=== PATIENT | female | born 1965 | race Caucasian/White ===

== ENCOUNTER 2023-04-17 15:46 | Emergency (ER) | payer MEDICAID | END 2023-04-17 17:58 | disposition home or self-care (01) | LOC: ED 15:46 | DX: N23 Unspecified renal colic (principal); Z88.8 Allergy status to other drugs, medicaments and biological substances ==

== ENCOUNTER 2023-04-21 21:23 | Inpatient (IN) | payer MEDICAID ==
[~2023-04-21] VITALS: Ht 157.5 cm; Wt 78.1 kg
[~2023-04-21 21:23] MED LIST: FLOMAX0.4 MG PO; ONDANSETRON ODT8 MG PO; PERCOCET 5-3251 EACH PO
--- OUTSIDE RECORDS SUMMARY | 2023-04-21 21:24 | XMS ---
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 No recent Security Events currently on file CRITERIA MET - 6 ED Visits in 6 Months - PDMP - [facility] - 2 Visits in 30 Days - [facility] - 3 Facilities in 90 Days - [facility] - Has Care Guidelines CARE PROVIDERS YUDI LOPEZ [facility] Current PHONE: [phone] GREGORIA JOLLY [facility] Current PHONE: Unknown JEROMY BEAN [facility] Current PHONE: [phone] ITALO LOWE [facility] Current PHONE: [phone] Guidelines Source: [facility] Guidelines Date: 07/19/2022 Care Recommendation: Reason for Care Plan Recommendations: - \T\nbsp; Frequent ED visits with subjective pain complaints.\T\nbsp;\T\nbsp; -18 ED visits between [facility] and [facility] within 6 months -Concerning Board of Pharmacy\T\nbsp;\T\nbsp; Care Plan Recommendations: - Pt should not be treated with potentially addictive pain medications for subjective complaints.\T\nbsp;\T\nbsp;\T\nbsp; - No home prescriptions of narcotics for subjective pain complaints. - SW/ complete a needs assessment, provide appropriate resources/referrals, if applicable.\T\nbsp; - Educate Pt regarding appropriate use of ED.\T\nbsp;\T\nbsp; Board of Pharmacy Review (Dates Investigated: 07/17/20-07/12/22) Prescriptions: 181 Pharmacies: 100 Prescribers: 30 Guidelines created on: 07/10/2019 Revised on:Chandanap;07/19/2022 Additional care guidelines exist for the following facilities: [facility] ( 11/19/2020 ) [facility] ( 06/26/2019 ) [place] VISIT COUNT (12 MO.) 14 [facility] [place] [address] [facility] [address] [facility] 2 [facility] 2 [facility] 2 [facility]_ 2 [facility] 2 PR[facility] Re[facility] 1 [facility]. 1 [facility] [place] TOTAL 40 NOTE: Visits indicate total known visits. ED/UCC VISIT TRACKING (12 MO.) 04/21/2023 21:23 [facility] [place] TYPE: Emergency COMPLAINT: - FLANK PAIN 04/17/2023 15:46 [facility] [place] TYPE: Emergency COMPLAINT: - R FLANK PAIN, NAUSEA, BLOOD IN URINE DIAGNOSES: - Allergy status to other drugs, medicaments and biological substances - Unspecified abdominal pain - Unspecified renal colic [facility] COMPLAINT: - PT STS BROKEN TOOTH DIAGNOSES: - Fracture of tooth (traumatic), initial encounter for closed fracture 04/16/2023 10:[facility] COMPLAINT: - PT STS BROKEN TOOTH 04/15/2023 16:28 [facility] [place] TYPE: Emergency COMPLAINT: - blood in urine, fever. DIAGNOSES: - Left lower quadrant pain - Abdominal Pain - blood in urine, fever. - Hematuria 04/15/2023 09:42 [facility] [place] TYPE: Emergency 04/14/2023 11:23 [facility] [place] TYPE: Emergency COMPLAINT: - R11.10 DIAGNOSES: - Hematuria, unspecified - Unspecified abdominal pain - Vomiting, unspecified 04/13/2023 21:02 [facility] [place] TYPE: Emergency COMPLAINT: - Hernia - Abdominal Pain DIAGNOSES: - Diverticulosis of intestine, part unspecified, without perforation or abscess without bleeding - Unilateral inguinal hernia, without obstruction or gangrene, not specified as recurrent - Hernia - Hernia - Abdominal Pain 04/12/2023 11:03 [facility] TYPE: Emergency COMPLAINT: - Poss hernia vomiting fever DIAGNOSES: - Left lower quadrant pain - Left lower quadrant pain - Nausea with vomiting, unspecified - Nausea with vomiting, unspecified - Abdominal Pain - Poss hernia vomiting fever 04/10/2023 17:59 [facility] TYPE: Emergency COMPLAINT: - Abdominal Pain DIAGNOSES: - Abdominal Pain 04/09/2023 16:48 [facility] TYPE: Emergency COMPLAINT: - n/v; abdominal pain DIAGNOSES: - Other chronic pain - Other chronic pain - Unilateral inguinal hernia, without obstruction or gangrene, not specified as recurrent - Unilateral inguinal hernia, without obstruction or gangrene, not specified as recurrent - Abdominal Pain - n/v; abdominal pain 04/09/2023 14:[facility] Emergency DIAGNOSES: - Generalized abdominal pain - Abdominal Pain - Abdominal Pain; Nausea 04/08/2023 12:49 [facility] TYPE: Emergency COMPLAINT: - left side hernia pain, with N/V x 2 days DIAGNOSES: - Unspecified abdominal pain - Unspecified abdominal pain - Abdominal Pain - left side hernia pain, with N/V x 2 days 04/07/2023 18:42 [facility] [place] TYPE: Emergency DIAGNOSES: - Left upper quadrant pain - Nausea with vomiting, unspecified - Abdominal Pain 04/07/2023 13:22 [facility] [place] TYPE: Emergency COMPLAINT: - Abdominal Pain, Nausea DIAGNOSES: - Nausea with vomiting, unspecified - Nausea with vomiting, unspecified - Abdominal Pain - Abdominal Pain, Nausea 04/06/2023 13:20 [facility] [place] TYPE: Emergency COMPLAINT: - Abdomen pain seen yesterday DIAGNOSES: - Generalized abdominal pain - Generalized abdominal pain - Abdomen pain seen yesterday - Abdominal Pain 04/05/2023 18:02 [facility] [place] TYPE: Emergency COMPLAINT: - left abd pain DIAGNOSES: - Left lower quadrant pain - Left lower quadrant pain - Abdominal Pain - left abd pain 03/21/2023 12:55 [facility] DIAGNOSES: [id number]. MOUTH PAIN BROKEN TOOTH 22080. Dental caries, unspecified 25134. Fracture of tooth (traumatic), initial encounter for closed fracture 03/08/2023 20:16 [facility] [place] TYPE: Emergency COMPLAINT: - Nausea; Fever; Abdominal Pain; Bloody Stool DIAGNOSES: - Generalized abdominal pain - Generalized abdominal pain - Abdominal Pain - Diarrhea - Nausea; Fever; Abdominal Pain; Bloody Stool 02/22/2023 17:25 [facility] [place] TYPE: Emergency COMPLAINT: - bloody stool abd pain nausea DIAGNOSES: - Diarrhea, unspecified - Left lower quadrant pain - Left lower quadrant pain - Vomiting, unspecified - Vomiting, unspecified - Abdominal Pain - bloody stool abd pain nausea - Nausea - Vomiting Plus 20 More Visits INPATIENT VISIT TRACKING (12 MO.) 01/19/2023 11:00 [facility] TYPE: Surgery COMPLAINT: - Chronic abdominal pain DIAGNOSES: - Unspecified abdominal pain [email or web address]
[2023-04-21] MEDS ORDERED: OMEPRAZOLE40 MG PO (21:43)
[2023-04-21] MEDS ORDERED: BUPROPION XL300 MG PO (21:43)
[2023-04-21] MEDS ORDERED: LEVOTHYROXINE75 MCG PO (21:43)
[2023-04-21 21:53] LABS: BILIRUBIN, URINE NEGATIVE (negative); BLOOD/HGB, URINE LARGE (Negative); KETONE, URINE NEGATIVE (Negative); LEUK ESTERASE, URINE SMALL (negative); NITRITE, URINE NEGATIVE (negative); PH, URINE 6.5 (5-7)
[2023-04-21 21:58] LABS: EPITHELIAL CELLS, URINE SQUAMOUS 2+ /lpf (0-1+); RED BLOOD CELLS, URINE >50 /hpf (0-5)
[2023-04-21 21:59] LABS: BACTERIA, URINE RARE /hpf (negative); CASTS, URINE NONE SEEN \\lpf; CRYSTALS, URINE NONE SEEN (0-1+); REFLEX CULTURE, URINE No (No)
[2023-04-21 22:21] LABS: BASOPHILS 1.1 % (0-2); EOSINOPHILS 0.4 % (0-6); HEMATOCRIT 36.5 % (35.0-50.0); HEMOGLOBIN 12.3 g/dL (12.0-18.0); LYMPHOCYTES 27.8 % (24-44); MCH 28.2 (27-36); MCHC 33.6 g/dl (30-36); MCV 83.9 fl (81-99); MONOCYTES 6.5 % (0-12); NEUTROPHILS 64.2 % (39-80); PLATELET COUNT 373 K/uL (140-440); RBC 4.35 M/ul (4.3-5.7); RDW 15.2 (10.5-15.0)
[2023-04-21 22:38] LABS: ALBUMIN/GLOBULIN RATIO 1.21 (1.1-2.4); ANION GAP 13.1 (7-21); BILIRUBIN, TOTAL 0.8 ng/dL (0.2-1.0); BUN/CREATININE RATIO 8.75 (6.0-28.6); CALCIUM 9.1 mg/dL (8.5-10.1); CREATININE, SERUM 0.8 mg/dL (0.55-1.02); POTASSIUM 3.1 mmol/L (3.5-5.1); PROTEIN, TOTAL 7.3 g/dL (6.4-8.2)
[2023-04-21 22:41] LABS: LACTIC ACID, BLOOD 1.9 mmol/L (0.4-2.0)
[2023-04-22] VITALS (7 sets, daily range): BP systolic 98–124; BP diastolic 60–84
--- NOTE | 2023-04-22 01:03 | NUR ---
[facility] BROUGHT BY FILLING AND STAPLING MACHINE OPERATOR. pt ORIENTED TO FLOOR, QUESTIONS ANSWERED REGARDING POC. IV SITE WNL, IV FLUIDS INFUSING DIRECTED. VSS. PRIMARY RN LEIA REMAINS IN ROOM FOR pt CARES. CALL LIGHT IN REACH.
[2023-04-22] MEDS ORDERED: PENICILLIN V P500 MG PO (08:30)
--- NOTE | 2023-04-22 08:42 | NUR ---
Patient in bed refused am care due to pain. Nurse notified, ice pack given by this firm administrator. Pt has no other requests at this time. Call light within reach.
--- NOTE | 2023-04-22 08:48 | NUR ---
MED REC COMPLETE
--- NOTE | 2023-04-22 09:05 | NUR ---
ADMIN DILAUDID 0.5MG IV FOR REPORTS OF 8/10 ABDOMINAL PAIN.
--- NOTE | 2023-04-22 09:05 | NUR ---
ADMIN DILAUDID 0.5MG IV FOR REPORTS OF 10/10 ABDOMINAL PAIN.
--- NOTE | 2023-04-22 09:22 | NUR ---
PATIENT IN BED, WATCHING TELEVISION. VITALS COMPLETED. PT HAS NOT DRANK ANY LIQUIDS OR USED THE BATHROOM YET. PATIENT HAS NO OTHER REQUESTS AT THIS TIME, CALL LIGHT WITHIN REACH.
--- NOTE | 2023-04-22 09:55 | NUR ---
PT APPEARED TO BE IN OVERALL GOOD SPIRITS. STATED PAIN WAS SIGNIFICANT BUT WAS CONFIDENT RELEIF WAS TO COME. CONSENTED TO PRAYER. PRAYED FOR RELEIF FROM PAIN AND ONGOING HEALING.
--- NOTE | 2023-04-22 10:29 | NUR ---
INTO TO SEE PATIENT, PATIENT AWAKE WATCHING TV. PATIENT STATES SHE CURRENTLY LIVES IN [facility]. HER QUETA IS HERE FOR WORK AND SHE WAS VISITING AT THE TIME OF HER ILLNESS. PATIENT DOES NOT REQUIRE ANY DME OR EXPRESS ANY OTHER CASE MANAGEMENT NEEDS. PATIENT STATES SHE DOES NOT HAVE A PCP AT THIS TIME HERS RECENTLY RETIRED. SHE STATES SHE WILL BE ESTABLISHING CARE WITH A NEW PCP WHEN SHE RETURNS HOME. ADVISE IF PATIEN HAS ANY QUESTION OR CONCERNS TO CONTACT CASE MANAGEMENT.
[2023-04-22 11:00] LABS: BASOPHILS 1.1 % (0-2); EOSINOPHILS 1.9 % (0-6); HEMATOCRIT 33.2 % (35.0-50.0); HEMOGLOBIN 10.9 g/dL (12.0-18.0); LYMPHOCYTES 38.7 % (24-44); MCH 27.8 (27-36); MCHC 32.8 g/dl (30-36); MCV 84.6 fl (81-99); MONOCYTES 7.4 % (0-12); NEUTROPHILS 50.9 % (39-80); PLATELET COUNT 305 K/uL (140-440); RBC 3.93 M/ul (4.3-5.7)
[2023-04-22 11:13] LABS: ANION GAP 10.8 (7-21); BUN/CREATININE RATIO 5.97 (6.0-28.6); CALCIUM 8.7 mg/dL (8.5-10.1); CREATININE, SERUM 0.67 mg/dL (0.55-1.02); POTASSIUM 3.8 mmol/L (3.5-5.1)
[2023-04-22 11:14] LABS: MAGNESIUM 1.7 mg/dL (1.8-2.4); PHOSPHORUS, INORGANIC 4.6 mg/dL (2.5-4.9)
--- NOTE | 2023-04-22 12:27 | NUR ---
ADMIN DILAUDID 1MG IV FOR REPORTS OF 10/10 ABDOMINAL PAIN.
--- NOTE | 2023-04-22 15:30 | NUR ---
RECEIVED REPORT FROM CALEB SOTO. PT IS RESTING QUIETLY IN BED. NO NEEDS VOICED AT THE MOMENT. PT REPORTS PAIN IS TOLERABLE AT THE MOMENT. CALL LIGHT WITHIN REACH.
--- NOTE | 2023-04-22 18:49 | NUR ---
PATIENT CALLED WANTED AN ICE PACK. SO BROUGHT HER AN ICE PACK.
--- NOTE | 2023-04-22 19:45 | NUR ---
REPORT RECEIVED FROM DAY SHIFT NURSE. PT RESTING COMFORTABLY IN BED. BREATHING EVEN AND UNLABORED. IV INFUSING. NO NEEDS AT THIS TIME. CALL LIGHT WITH REACH.
--- NOTE | 2023-04-22 20:20 | NUR ---
in to check vs, pt states x1 void earlier, no further needs
--- NOTE | 2023-04-22 23:17 | EKG ---
[facility] [address] [place] [address] Signed Normal sinus rhythm Normal ECG No previous ECGs available Confirmed by Ashley Menon MD () on 04/22/2023 11:17:40 PM Electronically Signed By: ASHLEY MENON MD 04/22/23 2317 PATIENT NAME: FREDDY MAY Electrocardiogram DATE OF : 69 PHYSICIAN: ASHLEY MENON MD REPORT #: [id number] REPORT IS CONFIDENTIAL AND NOT TO BE RELEASED WITHOUT AUTHORIZATION
[2023-04-23] VITALS (7 sets, daily range): BP systolic 93–116; BP diastolic 47–89
--- NOTE | 2023-04-23 03:45 | NUR ---
Patient requested an ice pack and pain medication. Nothing else at this time.
[2023-04-23 05:20] LABS: EOSINOPHILS 1.4 % (0-6); HEMATOCRIT 31.8 % (35.0-50.0); HEMOGLOBIN 10.4 g/dL (12.0-18.0); LYMPHOCYTES 26.4 % (24-44); MCH 27.7 (27-36); MCHC 32.8 g/dl (30-36); MCV 84.7 fl (81-99); MONOCYTES 7.9 % (0-12); NEUTROPHILS 63.3 % (39-80); PLATELET COUNT 285 K/uL (140-440); RBC 3.76 M/ul (4.3-5.7); RDW 14.9 (10.5-15.0)
[2023-04-23 05:35] LABS: ALBUMIN 3.2 g/dL (3.4-5.0); ALBUMIN/GLOBULIN RATIO 1.07 (1.1-2.4); ANION GAP 9.8 (7-21); BILIRUBIN, TOTAL 1.5 ng/dL (0.2-1.0); BUN/CREATININE RATIO 4.16 (6.0-28.6); CALCIUM 8.4 mg/dL (8.5-10.1); CREATININE, SERUM 0.72 mg/dL (0.55-1.02); MAGNESIUM 2.1 mg/dL (1.8-2.4); POTASSIUM 3.8 mmol/L (3.5-5.1); PROTEIN, TOTAL 6.2 g/dL (6.4-8.2)
--- NOTE | 2023-04-23 06:37 | NUR ---
in room to recheck bp per request of primary rn, bp recheck-remains soft but improved. iv site also alarming, iv site patent and flushes easily with brisk blood return. iv fluids and iv abx resumed, infusing wnl. call light in reach.
--- NOTE | 2023-04-23 08:15 | NUR ---
Patient awake in bed, no acute distress. Patient reports 5/10 generalized pain. Morphine 2MG IV admin at this time. Patient declined her po medications this morning. Patient denies needs at this time. Oral care and water provided to patient.
--- NOTE | 2023-04-23 08:22 | NUR ---
ADMIN DILAUDID 1MG IV FOR REPORTS OF 10/10 ABDOMINAL PAIN. IV SITE REMAINS PATEMT, FLUIDS/ABX INFUSING PER PROVIDER ORDER. PATIENT HAS NO CURRENT NEEDS AT THIS TIME. CALL LIGHT WITHIN REACH.
--- NOTE | 2023-04-23 10:07 | NUR ---
ADMIN DILAUDID 1MG IV, TYLENOL 650MG PO AND ZOFRAN 4MG IV FOR REPORTS OF 8/10 ABDOMINAL PAIN, TEMP OF 100.1F AND NAUSEA. COOL COMPRESS PROVIDED TO PATIENT AT THIS TIME. PATIENT UP TO VOID, SHE REPORTS SMALL SOFT BROWN STOOL. NO NEEDS AT THIS TIME.
--- NOTE | 2023-04-23 11:18 | NUR ---
ADMIN MORPHINE 4MG IV FOR REPORTS OF 8/10 ABDOMINAL PAIN.
--- NOTE | 2023-04-23 11:44 | NUR ---
Patient requesting more pain medication. Patient recently had morphine 4mg IV, education provided to pt regarding medication frequency and plan of care.
--- NOTE | 2023-04-23 13:04 | NUR ---
PIECER REPORTS PT IS READY FOR SHOWER AND NEEDS IV SALINE LOCKED. IV FLUSHED AND SALINE LOCKED PER PROTOCOL. ALCOHOL CAP APPLIED. PT DENIES ADDITIONAL REQUESTS OR COMPLAINTS. CALL LIGHT WITHIN REACH. PTS PRIMARY RN UPDATED.
--- NOTE | 2023-04-23 14:12 | NUR ---
ADMIN MORPHINE 4MG IV FOR REPORTS OF 8/10 ABDOMINAL PAIN. PATIENT REPORTS IMPROVED NAUSEA. IV SITE REMAINS PATENT, FLUIDS/ABX INFUSING PER PROVIDER ORDER. NO CURRENT NEEDS.
--- NOTE | 2023-04-23 17:12 | NUR ---
ADMIN MORPHINE 4MG IV AND ZOFRAN 4MG IV FOR REPORTS OF 7/10 ABDOMINAL PAIN AND NAUSEA.
--- NOTE | 2023-04-23 19:00 | NUR ---
SHIFT REPORT RECEIVED FROM [facility] CALEB SOTO AT BEDSIDE, pt AWAKE AND RESTING QUIETLY IN BED. ON RA, RR EVEN AND UNLABORED. NO DISTRESS NOTED. IV SITE WNL, FLUIDS INFUSING DIRECTED. ROOM TEMP DECREASED PER pt REQUEST. CALL LIGHT IN REACH.
--- NOTE | 2023-04-23 20:09 | NUR ---
ASSESSMENT COMPLETE, NO SCHEDULED MEDS YET DUE. PRN MORPHINE (3MG IV) AND PRN TYLENOL GIVEN FOR REPORTED 7/10 ABD PAIN. VSS, LOW GRADE FEVER NOTED. BOWEL TONES ACTIVE, pt REPORTS EATING A JELLO RECENTLY, NO NAUSEA REPORTED W/ ASSESSMENT. IV SITE WNL, FLSUHES EASILY. IV FLUIDS CONTINUE TO INFUSE DIRECTED. pt ASLO USED PRN EYE DROPS FOR REPORTED DRY EYES. pt EDUCATED ON PAIN MEDICATION AND HOW IT EFFECTS BOWEL FUNCTION AND OTHER SIDE EFFECTS. DISCUSSED IF POSSIBLE TO TITRATE PRN MORPHINE BUT INSTRCTED pt TO CALL IF PAIN MEDICATION IS NEEDED, pt VERBALIZED UNDERSTANDING. pt ALSO INSTRUCTED TO USE CALL LIGHT FOR RESTROOM NEEDS, CALL LIGHT IN REACH. pt DECLINED PRN MELATONIN.
--- NOTE | 2023-04-23 21:10 | NUR ---
ROUNDED ON pt FOLLOWING PAIN MEDICAITON ADMINISTRATION, pt RESTING IN BED ON HER RIGHT SIDE. RR EVEN AND UNLABORED. NO DISTRESS NOTED, CALL LIGHT IN REACH. pt LEFT UNDISTURBED AND ALLOWED TO REST.
--- NOTE | 2023-04-23 22:48 | NUR ---
ANTIBIOTIC INFUSING, SITE WNL. PT WITH EYES CLOSED RESP EVEN UNLABORED
--- NOTE | 2023-04-23 23:00 | NUR ---
CALL LIGHT ANSWERED, pt REQUESTING ADDITIONAL PAIN MEDICATION. pt GIVEN 3MG IV MORPHINE WITH PREVIOUS ADMINISTRATION, BUT CALLED AT APPROX 2220 ASKING WHEN SHE COULD HAVE MORE. WITH THIS ADMINISTRATION, MAX 4MG IV MORPHINE GIVEN, WILL MONITOR RESPONSE. ICE PACK WRAPPED W/ PILLOWCASE ALSO PROVIDED PER pt REQUEST. TEMP RECHECKED, WNL. CALL LIGHT IN REACH.
--- NOTE | 2023-04-24 00:05 | NUR ---
pt resting in bed with eyes closed, on ra. rr even and unlabored, no distress noted. call light in reach. iv fluids and iv abx infusing as directed.
--- NOTE | 2023-04-24 01:50 | NUR ---
rounded on pt, pt resting in bed with eyes closed, on ra. rr even and unlabored, no distress noted. iv site assessed, site wnl. iv fluids and iv abx infusing as directed. pt appears comfortable and relaxed while resting in bed, no outward signs of pain noted, pt left undisturbed and allowed to rest. call light in reach.
--- NOTE | 2023-04-24 03:20 | NUR ---
ROUNDED ON pt, pt RESTING QUIETLY IN BED WITH EYES CLOSED. pt AWOKE BRIEFLY WHILE IN ROOM. PUMP ALARMING, ISSUE RESOLVED. IV SITE WNL, FLUIDS CONTINUE TO INFUSE DIRECTED. pt DENEIS NEEDS OR CONCERNS WHEN ASKED/OFFERED. CALL LIGHT IN REACH.
--- NOTE | 2023-04-24 04:47 | NUR ---
call light answered, prn pain and nausea meds given-sdee emar. iv site wnl, iv fluids infusing as directed. nasuea assessment complete, PT reports passing gas during the night. bowel tones active. no additional needs, call light in reach.
[2023-04-24 04:48] VITALS: BP 103/58
[2023-04-24 05:51] LABS: BASOPHILS 0.8 % (0-2); EOSINOPHILS 3.3 % (0-6); HEMATOCRIT 29.8 % (35.0-50.0); HEMOGLOBIN 9.9 g/dL (12.0-18.0); LYMPHOCYTES 26.8 % (24-44); MCH 27.9 (27-36); MCHC 33.1 g/dl (30-36); MCV 84.3 fl (81-99); MONOCYTES 7.9 % (0-12); NEUTROPHILS 61.2 % (39-80); PLATELET COUNT 120 K/uL (140-440); RBC 3.53 M/ul (4.3-5.7); RDW 14.7 (10.5-15.0)
--- NOTE | 2023-04-24 06:03 | NUR ---
SCHEDULED IV ABX INFUSING DIRECTED ALONG WITH NEW BAG IV FLUIDS, IV SITE WNL. NO ADDITIONAL NEEDS OR CONCERNS, CALL LIGHT IN REACH.
[2023-04-24 06:08] LABS: ALBUMIN 2.9 g/dL (3.4-5.0); ALBUMIN/GLOBULIN RATIO 1.04 (1.1-2.4); ANION GAP 8.8 (7-21); BILIRUBIN, TOTAL 1.1 ng/dL (0.2-1.0); BUN/CREATININE RATIO 4.61 (6.0-28.6); CALCIUM 8.4 mg/dL (8.5-10.1); CREATININE, SERUM 0.65 mg/dL (0.55-1.02); POTASSIUM 3.8 mmol/L (3.5-5.1); PROTEIN, TOTAL 5.7 g/dL (6.4-8.2)
--- NOTE | 2023-04-24 08:20 | NUR ---
ASSESSMENT COMPLETE - PT IN 04/14 PAIN AND REQUESTS PAIN MEDICATION. 2MG MORPHINE ADMINISTERED ALONG WITH TYLENOL. PT REPORTS FEELING FEVERISH, TEMP 99.6 ORAL. IV SITE PATENT. SMALL SOFT BM PRODUCED THIS AM. PT TOLERATING CLEAR LIQS WITHOUT INCREASED PAIN OR NAUSEA. PT HOWEVER STATES SHE DOESNT FEEL LIKE SHE IS IMPROVING CLINICALLY.
[2023-04-24 09:40] VITALS: BP 94/54
--- NOTE | 2023-04-24 11:03 | NUR ---
PT SET UP FOR SHOWER, INDEPENDENT IN ROOM. RATES PAIN 7/10. REQUESTS ADDITIONAL MORPHINE AFTER.
--- NOTE | 2023-04-24 12:30 | NUR ---
PT REPORTS PAIN 7/10 - PACING IN ROOM. RETURNED FROM CT, PAIN MEDICATION MANAGMENT CHANGE REQUESTED, STATES SHE FELT BETTER COVERAGE FROM DILAUDID. WILL FOLLOW UP WITH MD.
--- NOTE | 2023-04-24 13:46 | NUR ---
RN ROUNDING ON PT - NAUSEA PERSISTS AFTER TAKING SIPS OF CLEAR LIQS, ZOFRAN ADMINISTERED. MD TO DISCUSS CT RESULTS AT BEDSIDE.
[2023-04-24 13:48] VITALS: BP 97/54
--- NOTE | 2023-04-24 14:52 | NUR ---
PRN PAIN MEDICATION ADMINISTERED FOR 8/10 PAIN. PT UP TO BATHROOM BY SELF, STEADY ON FEET. UNDERSTANDS POC DISCUSSION WITH MD - ALL QUESTIONS ANSWERED.
--- NOTE | 2023-04-24 15:47 | NUR ---
PT AMBULATING IN HALLWAY
[2023-04-24 17:07] VITALS: BP 103/63
--- NOTE | 2023-04-24 17:31 | NUR ---
ROUNDING ON PT - RESTING IN BED IN PAIN, DUE FOR ADDITIONAL DOSE OF PAIN MEDS IN 1 HOUR. OINTMENT PROVIDED FOR DRY NOSE.
--- NOTE | 2023-04-24 18:06 | NUR ---
pt ambulating in hallway
--- NOTE | 2023-04-24 19:25 | NUR ---
BEDSIDE REPORT RECEIVED FROM KRANTHI ELLIS, PT AWAKE AND ALERT, DISCUSSED PLAN OF CARE WITH PT, PT DESIRES TO HAVE DILAUDID WHEN IT IS DUE FOR LOWER ABDOMINAL PAIN, ICE CHIPS GIVEN.
--- NOTE | 2023-04-24 19:38 | NUR ---
PT MEDICATED WITH ZOFRAN FOR NAUSEA PER REQUEST, NO EMESIS AT THIS TIME.PT RESTING, IV PATENT WITH LR INFUSING AT 125ML/HR.
--- NOTE | 2023-04-24 19:55 | NUR ---
PT STATES SHE DID HAVE A BM EARILIER WHICH LOOKED MUCOUSY WITH POSSIBLE BLOOD, STOOL FLUSHED PER PT, HAT PUT IN TOILET TO COLLECT STOOL, DISCUSSED WITH PT TO SAVE NEXT STOOL SO RN COULD CHECK FOR PRESENCE OF BLOOD, PT AGREES. WARM AND COLD PACK GIVEN PER REQUEST.
[2023-04-24 22:19] VITALS: BP 102/43
--- NOTE | 2023-04-24 22:34 | NUR ---
PT AWAKEN, VS AND ASSESSMENT COMPLETED, PT MEDICATED WITH DILAUDID 1.5MG IV FOR LOWER ABDOMINAL PAIN PER ORDER, PT TAKING SMALL AMOUNT OF ICE CHIPS, IV WITH SMALL AMOUNT LEAKAGE ON DRESSING, FLUSHES WELL WITHOUT LEAKAGE AT SITE, IV REDRESSED AND SITE INTACT. PT ATTEMPTING TO REST.
--- NOTE | 2023-04-24 23:25 | NUR ---
PT APPEARS TO REST QUIETLY WITH EYES CLOSED, RESP REG.
--- NOTE | 2023-04-25 00:30 | NUR ---
CALL LIGHT ANSWERED. IV PUMP ALARMING, pt COMPLAINS OF 6-7/10 IN LOWER ABDOMEN. PRN TYLENOL ADMINISTERED WITH SIP OF WATER. WARM PACK AND ICE PACK PROVIDED PER pt REQUEST. NEW BAG IVF INFUSING WNL. CALL LIGHT IN REACH.
--- NOTE | 2023-04-25 00:40 | NUR ---
PT APPEARS TO BE RESTING QUIETLY, RESP EVEN AND REG.
--- NOTE | 2023-04-25 02:16 | NUR ---
RN CALLED TO ROOM, PT REQUESTING ZOFRAN AND DILAUDID FOR PAIN, MEDICATED PER ORDER, PT REPORTS SHE HAD ANOTHER STOOL, SMALL SOFT LIQUID BROWN STOOL NOTED, QUIAC TESTED AND NEG FOR BLODD, VOIDING WELL CLEAR LIGHT YELLOW URINE, ASSESSMENT COMPLETED.
--- NOTE | 2023-04-25 03:40 | NUR ---
PT APPEARS TO SLEEP, RESP EVEN AND REG, WITHOUT DISTRESS.
--- NOTE | 2023-04-25 05:40 | NUR ---
PT AWAKE, DROWSY, ASKING WHEN PAIN MED WOULD BE DUE, TOLD IN APPROXIMATELY 45 MINUTES, PT STATES SHE WOULD LIKE MEDICATION WHEN IT IS DUE. PT GIVEN WARM PACK AND CUP OF ICE, IVF INFUSING WELL, SITE INTACT.
[2023-04-25 05:41] LABS: HEMOGLOBIN 9.1 g/dL (12.0-18.0)
[2023-04-25 05:43] LABS: BASOPHILS 0.6 % (0-2); EOSINOPHILS 4.1 % (0-6); HEMATOCRIT 27.1 % (35.0-50.0); LYMPHOCYTES 40.6 % (24-44); MCH 28.2 (27-36); MCHC 33.6 g/dl (30-36); MCV 83.8 fl (81-99); MONOCYTES 8.3 % (0-12); NEUTROPHILS 46.4 % (39-80); PLATELET COUNT 246 K/uL (140-440); RBC 3.23 M/ul (4.3-5.7); RDW 14.5 (10.5-15.0)
[2023-04-25 05:59] LABS: ALBUMIN 2.9 g/dL (3.4-5.0); ANION GAP 9.7 (7-21); BILIRUBIN, TOTAL 0.7 ng/dL (0.2-1.0); BUN/CREATININE RATIO 3.03 (6.0-28.6); CALCIUM 8.6 mg/dL (8.5-10.1); CREATININE, SERUM 0.66 mg/dL (0.55-1.02); POTASSIUM 3.7 mmol/L (3.5-5.1); PROTEIN, TOTAL 5.8 g/dL (6.4-8.2)
[2023-04-25 06:00] VITALS: BP 93/65
--- NOTE | 2023-04-25 06:37 | NUR ---
PT MEDICATED WITH DILAUDID 1.5MG IV FOR LOWER ABDOMINAL PAIN PER HER REQUEST, PT RESTING IN BED, NOTED ORANGE JUICE GIVEN TO PT PER CHARGE NURSE REQUEST FOR LOW BLOOD GLUCOSE ON AM LABS, PT SIPPING ON JUICE WITHOUT DIFFICULTY.
--- NOTE | 2023-04-25 09:45 | NUR ---
PATIENT UP WALKING IN WELSH, STATES SHE IS DOING BETTER. PATIENT TO SHOWER LATER TODAY. NO FURTHER CASE MANAGEMENT NEEDS AT THIS TIME.
--- NOTE | 2023-04-25 10:00 | NUR ---
EXERCISED MINISTRY OF PRESENCE PT TALKED OF LIFE EXPERIENCES. PATIENT ACCEPTED OFFER OF ACTIVITY BOOK. CONSENTED TO PRAYER. PRAYED FOR ONGOING HEALING AND ABIDING PEACE. LEFT GUIDEPOST AND CONTACT CARD.
[2023-04-25 10:13] VITALS: BP 101/57
[2023-04-25 13:04] VITALS: BP 112/46
--- NOTE | 2023-04-25 13:59 | NUR ---
PATIENT GIVEN 1.5MG OF IV DILAUDID FOR 9/10 LOWER ABDOMEN PAIN. PATIENT UP TO BATHROOM TO VOID, BACK TO BED. PATIENT IS STABLE ON HER FEET. IV ZOSYN INFUSING FOR 4 HOURS.
--- NOTE | 2023-04-25 14:30 | NUR ---
DID PATIENT TOOK A SHOWER. PATIENT IS INDEPENDENT. DID BED LINEN CHANGE.
--- NOTE | 2023-04-25 15:51 | NUR ---
WENT IN TO CHECK ON PATIENT. PATIENT ASKED FOR A HOT PACK. BROUGHT HER ONE. SHE ALSO ASKED FOR PAIN MEDS OR A TYNENOL. NURSE NOTIFIED.
[2023-04-25 17:07] VITALS: BP 105/36
--- NOTE | 2023-04-25 19:00 | NUR ---
REPORT RECEIVED FROM THERESE ELLIS, ASSUMING CARE OF PT.
--- NOTE | 2023-04-25 19:08 | NUR ---
PT UP IN CHAIR, ALERT, FINISHING HER BOWEL PREP, STATES SHE HASN'T HAD A STOOL SINCE PREP STARTED, IVF INFUSING WELL, PT REQUESTING PAIN MEDICATION WHEN IT IS DUE. PT IN ISOLATION FOR DROPLET PRECAUTIONS.
[2023-04-25 20:40] VITALS: BP 123/66
--- NOTE | 2023-04-25 20:40 | NUR ---
RN TO ROOM, PT ALERT AND ORIENTENED, PT TEARFUL STATES SHE FEELS LIKE SHE WAS A "BOTHER" TODAY FOR THE STAFF DUE TO ISOLATION, SUPPORT GIVEN AND PT REASSURED SHE IS NOT BOTHER ANY STAFF MEMBERS WITH ANY NEEDS SHE MAY HAVE, ENCOURAGED TO CALL STAFF WITH ANY NEEDS OR CONCERNS, DISCUSSED HER HOME MEDS AND THAT THEY MAY BE RESTARTED TOMORROW AFTER PROCEDURE, PT CALMING, VS AND ASSESSMENT COMPLETED, IVF INFUSING WELL, MEDICATED FOR PAIN WITH DILAUDID 1.5MG IV AND ZOFRAN PER REQUEST AND PER ORDER.
--- NOTE | 2023-04-25 22:00 | NUR ---
RN TO ROOM, PT SIPPING ON ICE TEA, VOIDING WELL, STARTING TO HAVE BMS AFTER BOWEL PREP. I/O DONE.
--- NOTE | 2023-04-25 23:28 | NUR ---
PT AWAKE AND ALERT, REQUESTING PAIN MED, MEDICATED WITH DILAUDID 1.5MG IV PER ORDER, ANTIBODIC UP AND INFUSING. PT REPORTS SHE HAS HAD APPROXIMATELY 6 STOOLS SINCE BOWEL PREP. PT MADE NPO FOR AM COLONOSCOPY, PT ATTEMPTING TO REST.
[2023-04-26] VITALS (7 sets, daily range): BP systolic 109–133; BP diastolic 52–77
--- NOTE | 2023-04-26 01:00 | NUR ---
PT RESTING WITHOUT COMPLAINTS.
--- NOTE | 2023-04-26 02:46 | NUR ---
RN CALLED TO ROOM, PT REQUESTING PAIN MED AND NAUSEA MEDICATION, PT MEDICATED WITH DILAUDID AND ZOFRAN PER ORDER, ASSESSMENT COMPLETED, IV PATENT.
--- NOTE | 2023-04-26 03:30 | NUR ---
RN CALLED TO ROOM FOR IV ALARM, A/B COMPLETED, PT STATES SHE HAS BEEN ABLE TO SLEEP, WITHOUT OTHER REQUESTS.
--- NOTE | 2023-04-26 05:57 | NUR ---
PT AWAKE, TEARFUL, STATES SHE IS ANXIOUS FOR AM COLONOSCOPY, SUPPORT GIVEN, PT REQUESTING PAIN MED, MEDICATED WITH DILAUDID PER ORDER, IV SITE PATENT, D5LR CONTS AT 100ML/HR, PT RESTING, COOL CLOTH GIVEN PER REQUEST.
--- NOTE | 2023-04-26 07:59 | NUR ---
recieved shift report from police shift commander nurse. patient is up in chair and is requesting a bed bath/ shower before surgery
--- NOTE | 2023-04-26 10:09 | NUR ---
PATIENT HAD EMESIS THIS MORNING DUE TO FEELING NAUSEAUS ZOFRAN WAS GIVEN. PATIENT COMPLAINS OF PAIN IN ABDOMEN DILAUDID GIVE. ALL MEDS GIVEN ORDERED. PT GOT A BED BATH AND NOW WILL BE GETTING A DRESSING CHANGE FOR HER iv DUE TO A LEAK. NO THER CARES NEEDED AT THIS TIME CALL LIGHT WITHIN REACH
--- NOTE | 2023-04-26 10:41 | NUR ---
PT IV WAS LEAKING SO NURSE THERESE CHANGED IT OUT. PT IS CURRENTLY RESTING AND AWAITING HER COLONOSCOPY TODAY. NO OTHER CARES ARE NEEDED AT THIS TIME CALL LIGHT WITHIN REACH
--- NOTE | 2023-04-26 13:46 | NUR ---
PATIENT REQUESTED A SHOWER. PT REASSESSMENT OF PAIN WAS A 6. STATES PAIN IS GOING DOWN SLOWLY. NO OTHER CARES AT THIS TIME. PT ADVISED TO PULL CORD TO CALL FOR ASSISTANCE IF NEEDED.
--- NOTE | 2023-04-26 14:55 | NUR ---
SPOKE TO THE PATIENT ABOUT THE DISCHARGE PLAN. PATIENT PLANS TO DISCHARGE TO HOME AND PATIENT WILL BE FIND HER OWN PCP SINCE THE PATIENT [place]IVES [place] OF TOWN AND ALREADY KNOWS WHO SHE WANTS HER PCP.
--- NOTE | 2023-04-26 15:30 | NUR ---
PATIENT WAS TAKEN TO DAY SURGERY FOR HER PROCEDURE.
--- NOTE | 2023-04-26 16:57 | NUR ---
PATIENT TOOK A BEDBATH THIS MORNING. THAN AROUND 1400 PATIENT TOOK A SHOWER. BED LINENS CHANGED. PATIENT INDEPENDENT.
--- NOTE | 2023-04-26 17:47 | NUR ---
04/26/23 1747 Jane Cline 1738- PT ARRIVES TO UNIT VIA STRETCHER FROM PACU. PT IS UNAROUSABLE VIA TACTILE STIMULI. PT RESTING ON LFT SIDE W/ORAL AIRWAY IN PLACE AND 10L OF O2 VIA MASK ON AT THIS TIME. PT HEAD REPOSITIONED ON PILLOW D/T AUDIBLE SNORE AT THIS TIME. PT RESPIRATIONS ARE EVEN AND UNLABORED, NO SIGNS OF DISTRESS. [place] PERRY PROVIDING REPORT AT BEDSIDE.
--- NOTE | 2023-04-26 18:27 | NUR ---
PT ARRIVED TO FLOOR AFTER COLONOSCOPY. A/O, RESPIRATIONS EVEN AND REGULAR. IV FLUIDS RUNNING.
--- NOTE | 2023-04-26 19:15 | NUR ---
shift report received from daysnjft rolando bass/tenzin at bedside. pt awake and resting in bed. iv site wnl, fluids infusing wnl. no needs or concerns verbalized. pt on ra, rr even and unlabored. call light in reach.
--- NOTE | 2023-04-26 20:45 | NUR ---
SBA PATIENT USED THE BATHROOM AND BACK TO BED. PATIENT PROVIDED WITH CUP OF ICE, ICE WATER AND ICED TEA PER PATIENT'S REQUEST. PRIMARY RN WAS WITH PATIENT.
--- NOTE | 2023-04-26 20:48 | NUR ---
pt ASSESSMENT COMPLETE, pt AWAKE AND A/OX4. pt REPORTS 8/10 PAIN TO ABD, ICE PACK PROVIDED WRAPPED W/ PILLOWCASE. PRN SITZ BATH OFFERED, pt DECLINED. IV SITE WNL, FLUIDS INFUSING DIRECTED. NO NAUEA REPORTED, GAG REFLEX NOTED. CALL LIGHT IN REACH.
--- NOTE | 2023-04-26 22:00 | NUR ---
SBA PATIENT TO BATHROOM AND BACK TO BED. WARM PACK PROVIDED PER PATIENT'S REQUEST. PRODUCT DEVELOPMENT ECOLOGIST WAS WITH PATIENT.
--- NOTE | 2023-04-26 22:05 | NUR ---
pt AWAKE RESTING IN BED. COMPLAINS OF NAUSEA, NO EMESIS. PRIMARY RN NOTIFIED. VS COMPLETE, STABLE. IVF INFUSING WNL. CALL LIGHT IN REACH.
--- NOTE | 2023-04-26 22:45 | NUR ---
IN ROOM TO GIVE SCHEDULED IV ABX, IV SITE WNL. pt RECENTLY MEDICATED WITH PRN PAIN AND NAUSEA MEDICATION BY THEATRE INSTRUCTOR BAILEY. NO ADDITIONAL NEEDS, CALL LIGHT IN REACH.
--- NOTE | 2023-04-26 23:30 | NUR ---
ROUNDED ON pt, pt RESTING IN BED WITH EYES CLOSED. ON RA, RR EVEN AND UNLABORED. NO DISTRESS NOTED. CPOX IN PLACE. SPO2 AND HR WNL. CALL LIGHT IN REACH.
[2023-04-27 01:48] VITALS: BP 101/57
--- NOTE | 2023-04-27 01:58 | NUR ---
rounded on pt, no acute changes to focused assessment. pt awoke to voice. vss, cpox remains in place. no nasuea reported, pt appears comfortable and relaxed. no distress or outward signs of pain noted. iv site wnl, iv fluids and iv abx continue to infuse as directed. call light in reach. bowel tones active.
--- NOTE | 2023-04-27 02:28 | NUR ---
call light answered, prn pain medication given for reported 7-8/10 abd pain, see rn note. no further needs or concerns, call light in reach.
--- NOTE | 2023-04-27 02:53 | NUR ---
ROUNDED ON pt FOLLOWING PAIN MEDICAITON ADMINISTRATION-pt AWAKE AND RESTING QUIETLY IN BED. NO NEEDS OR CONCERNS WHEN ASKED. CALL LIGHT IN REACH, CPOX REMAINS IN PLACE PER PROTOCOL.
[2023-04-27 04:21] VITALS: BP 110/55
--- NOTE | 2023-04-27 04:25 | NUR ---
call light answered, pt recently returned from bathroom. hat emptied. iv pump alarming, issue resolved. iv site wnl, fluids infusing as directed. vss and i&o's collected. fresh water provided. external hemmoroids noted, pt reports they are "getting better". prn cream and prn sitz bath declined by pt at this time, prefers to wait until after breakfast if needed. pt on personal phone, denies additional needs or concerns. call light in reach.
--- NOTE | 2023-04-27 04:40 | NUR ---
pt A/OX4, VSS. pt INDEPENDENT IN ROOM, CALLS APPROPRIATELY. PAIN CONTROLLED WITH PRN TYLENOL AND PRN IV PAIN MEDICATION Q3H. PRN ZOFRAN GIVEN FOR NASUEA, BOWEL TONES ACTIVE. pt ON CLEAR LIQUID DIET. IV SITE WNL, FLUIDS INFUSING DIRECTED. EXTERNAL HEMMORHOIDS NOTED, pt DECLINED PRN CREAM AND PRN SITZ BATHS WHEN OFFERED-PREFERS TO WAIT UNTIL CLOSER TO BREAKFAST.
--- NOTE | 2023-04-27 06:25 | NUR ---
call light answered, prn nausea and pain medication given along with scheduled iv abx, see emar. iv site wnl, no additional needs or concerns verbalized. call light in reach.
--- NOTE | 2023-04-27 07:20 | NUR ---
Received report from [facility] nurse. Pt appears to be sleeping comfortably. Respirations even and regular.
--- NOTE | 2023-04-27 08:31 | NUR ---
PT ASSESSMENT AND MEDICATION ADMINISTRATION COMPLETED. PT IS A/O, RESPIRATIONS EVEN AND REGULAR. CONTINUED COMPLAINTS OF ABDOMINAL PAIN.
--- NOTE | 2023-04-27 10:00 | NUR ---
ROUNDED ON PT. MD AT BEDSIDE. VO TO DC IV ABX, AND IV PAIN MEDICATION. NEW VO PLACED FOR PO ABX AND PAIN MEDS. VO PLACED FOR FULL LIQUID DIET. POSSIBLE DC TODAY. PT DENIES NEEDS ATT.
--- NOTE | 2023-04-27 10:28 | NUR ---
PT APPEARED TO BE SLEEPING. DID NOT DISTURB. SAID SILENT PRAYER FOR ONGOING HEALING.
[2023-04-27 10:45] VITALS: BP 104/67
--- NOTE | 2023-04-27 11:01 | NUR ---
VS COMPLETED. ASSISTED PT UP TO SHOWER.
--- NOTE | 2023-04-27 12:05 | NUR ---
pt reported n/v after attempting to eat full liquid lunch. Zofran administered. Pt is sitting in chair tearful. HELPER [employer] HANGING gave cool cloth. New emesis bag provided. IV fluids running.
--- NOTE | 2023-04-27 12:10 | NUR ---
Spoke with pt. She plans on dc today. Eating lunch.
--- NOTE | 2023-04-27 12:44 | NUR ---
ROUNDED ON PT POST ZOFRAN ADMINISTRATION. PT IS VERY TEARFUL STATING SHE IS IN PAIN RATING IT 9/10. PRN OXYCODONE ADMINISTERED. CALL LIGHT WITHIN REACH.
[2023-04-27 14:25] VITALS: BP 115/70
--- NOTE | 2023-04-27 15:06 | NUR ---
UPDATED MD ON PT. PT HAD X1 EPISODE OF EMESIS WITH LUNCH.
--- NOTE | 2023-04-27 15:30 | NUR ---
pt education provided on diverticulitis and low fiber diet. written material provided. pt is eating snack. tolerating well.
[2023-04-27 15:56] LABS: C. DIFF TOXIN B GENE TCDB,PCR Not Detected (())
[2023-04-27] MEDS ORDERED: AMOX TR-K CLV1 EACH PO (16:18)
[2023-04-27] MEDS ORDERED: OXYCODONE HCL5 MG PO (16:19)
[2023-04-27 16:36] VITALS: BP 123/78
--- NOTE | 2023-04-28 14:11 | CONS ---
[facility] [address], [place] [address] Signed DATE OF CONSULTATION: 04/25/2023 CONSULTING PHYSICIAN: Mcgrath MD REQUESTING PHYSICIAN: Dr. Moser. PROBLEM: Bloody diarrhea, presumptive recurrent acute diverticulitis. 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 She presented to the emergency room on April 21, 2023, in the evening and evaluated by Dr. Macias with complaints of right-sided abdominal pain and right flank pain with radiation to the lower abdomen on the right side and extending across to the left. Her evaluation in the emergency room included clinical findings of an elevated temperature 99.1 with preservation of her blood pressure and heart rate was not excessive. She had right upper abdominal and right CVA tenderness to palpation. Her white count was elevated at 12.6, hematocrit 36.5, platelets 273,000. Potassium low at 3.1 and creatinine normal at 0.8. The patient has a distant history of cholecystectomy. A CT scan of the abdomen was performed which showed probable uncomplicated diverticulitis of the distal descending colon, specifically a finding of a large diverticulum with surrounding inflammation. She was admitted to the hospital and managed by Dr. Moser, hospitalist, with administration of IV antibiotics including piperacillin and additional treatment with Protonix. The patient has had what is seen as little progress regarding her symptoms since her admission. She has had more diarrhea and some blood associated with it, which is generally atypical of a diverticulitis problem. On that basis, a consultation was obtained. The patient has family history of colon cancer in two aunts. There is no family history of ulcerative colitis or Crohn disease that she is aware of. She underwent an additional CT scan yesterday, which was largely unchanged from the time of admission, continued to show probable diverticulitis at the level of the distal descending colon without evidence of perforation, abscess or other problem. The appendix was considered surgically absent. There is no retroperitoneal or inguinal adenopathy. Electronically Signed By: WASHINGTON KLEIN MD 04/28/23 1411 PATIENT NAME: FREDDY MAY CONSULTATION DATE OF : 69 REPORT #: [id number] PHYSICIAN: WASHINGTON KLEIN MD PCP: NO PRIMARY CARE PHYSICIAN REPORT IS CONFIDENTIAL AND NOT TO BE RELEASED WITHOUT AUTHORIZATION [facility] [address] [place] [id number] Signed The patient notes that she has had C difficile infection in the past at least three times. Although, blood cultures have been obtained at time of admission. C difficile collection has yet to be initiated from my understanding. The patient continues to have diarrhea, left-sided abdominal pain, and dark fluid characterizing her diarrhea and with wiping moderately red blood. PAST MEDICAL HISTORY: Notable for sulfa allergy, allergy to Toradol and Reglan and Compazine. Other medical issues include hypothyroidism. MEDICINES: At admission include omeprazole, bupropion, Synthroid, oxycodone, Zofran, and Flomax. REVIEW OF SYSTEMS: She denies any chest pain, shortness of breath or dysphagia. She has had no recent constipation. Her pain is dominantly in the lower abdomen, mostly in the left lower quadrant and some on the right side. PHYSICAL EXAMINATION: GENERAL: Pleasant woman who does not look to be systemically toxic at this time. VITAL SIGNS: Temperature 98.3, pulse 65, blood pressure 112/46. Mucous membranes are slightly dry. Trachea is midline. CHEST: Shows normal respiratory excursion. ABDOMEN: Nondistended. There is no evidence of ascites. There is mild tenderness in the left lower quadrant, but not too much. Certainly, no peritonitis proper. EXTREMITIES: Show no clubbing, cyanosis, or edema. LABORATORY STUDIES: For today show white count of 5.9, hematocrit 27.1, platelets 246,000. Chem profile which is essentially normal. Creatinine 0.66. Urinalysis, large blood is noted, greater than 50 high cells per high-power field. White cells of 4-6. Serologies pending regarding C difficile. COVID was not tested for. ASSESSMENT: The patient's symptoms are somewhat atypical for acute diverticulitis; her presentation was that of right-sided flank pain extending down to the right pelvis and over to the left side. Her current issue is mostly in the left lower quadrant consistent with diverticulitis. Diverticulosis has been noted and peridiverticular inflammatory changes noted. However, it is quite unusual to have rectal bleeding in the setting of acute diverticulitis. The possibility this represents a colitis including possible ischemic colitis through a segment of bowel, previously afflicted by diverticula and is a consideration. Electronically Signed By: WASHINGTON KLEIN MD 04/28/23 1411 PATIENT NAME: FREDDY MAY CONSULTATION DATE OF : 69 REPORT #: [id number] PHYSICIAN: WASHINGTON KLEIN MD PCP: NO PRIMARY CARE PHYSICIAN REPORT IS CONFIDENTIAL AND NOT TO BE RELEASED WITHOUT AUTHORIZATION [address] [address] Signed Colonoscopy with all due care may be reasonably performed in this situation to assess or refute the possibility of concurrent colitis. I certainly agree with it and advisability of obtaining a Clostridium difficile assessment as she has had it before. A bowel prep with MiraLAX and continued clear liquid diet at this time may allow for a reasonable preparation to allow for limited colonoscopy tomorrow. The C-reactive protein may better gauge the level of inflammation objectively that can be rather nonspecific quite obviously. PLAN: We will set up for colonoscopy to be performed tomorrow. She is mindful of the risk of bleeding, infection, perforation, and exasperation of underlying actual diverticulitis at present. MD ONEIDA Mcgrath/MODL /[id number] cc: ASHLEY MOSER MD Copies: ~ Electronically Signed By: WASHINGTON KLEIN MD 04/28/23 1411 PATIENT NAME: FREDDY MAY CONSULTATION DATE OF : 69 REPORT #: [id number] PHYSICIAN: WASHINGTON KLEIN MD PCP: NO PRIMARY CARE PHYSICIAN REPORT IS CONFIDENTIAL AND NOT TO BE RELEASED WITHOUT AUTHORIZATION
--- NOTE | 2023-04-28 14:11 | OR ---
[facility] [address], [place] [address] Signed DATE OF OPERATION: 04/26/2023 SURGEON: Washington Klein MD PREOPERATIVE DIAGNOSES: 1. Initial right-sided abdominal pain, now left lower quadrant. 2. CT scan findings of pericolonic inflammation of sigmoid with concurrent diverticulosis. 3. Recent bloody diarrhea. POSTOPERATIVE DIAGNOSES: 1. Sigmoid diverticulosis, no evidence of colitis. No evidence of polyps or cancer. 2. Acute hemorrhoidal prolapse without thrombosis. PROCEDURE: Total colonoscopy to cecum with biopsy cecum, sigmoid, and rectum. ANESTHESIA: Intravenous sedation, propofol infusion, Washington Rose CRNA. INDICATION: This 57-year-old white woman is from [place] and was admitted to the hospital on 04/23/[address] Ashley Moser, hospitalist, with initial complaints of right-sided abdominal pain and abnormal urinalysis with elevated red cells. A CT scan was performed showing no evidence of nephrolithiasis or other problem other than apparent inflammation of the sigmoid and left colon and concurrent diverticulosis. She was treated in the usual way with IV fluids, antibiotics and so forth. She has had persisting left lower abdominal and some right lower abdominal pain. She has additionally developed what was described as "bloody diarrhea." On the basis of these findings, consultation was undertaken. I have recommended colonoscopy to distinguish between acute colitis in the setting of underlying diverticulosis versus diverticulitis proper. The risk of bleeding, infection, perforation, and other unforeseen complications related to colonoscopy was reviewed with her in detail. She understands and wished to proceed. FINDINGS: The prep was good. Complete colonoscopy was undertaken to the cecum. Special care was taken to avoid excessive insufflation of air, so as to not exacerbate diverticulitis. She had no evidence of colitis proper. There were no polyps. There was no cancer. Biopsies were taken of the cecum, sigmoid and the rectum. Of note, she did have acute enlargement of hemorrhoids without signs of thrombosis related to her bowel prep. Electronically Signed By: WASHINGTON KLEIN MD 04/28/23 1411 PATIENT NAME: FREDDY MAY OPERATIVE REPORT DATE OF : 69 REPORT #: [id number] PHYSICIAN: WASHINGTON KLEIN MD PCP: NO PRIMARY CARE PHYSICIAN REPORT IS CONFIDENTIAL AND NOT TO BE RELEASED WITHOUT AUTHORIZATION [facility] [address], [place] [address] Signed DESCRIPTION OF PROCEDURE: The patient was brought to the endoscopy suite and placed in lateral decubitus position and given intravenous sedation to a point of slurred speech and nystagmus with full cardiopulmonary monitoring. Anorectal examination showed significant prolapse of hemorrhoidal tissue circumferentially. There was no evidence of thrombosis at this time. Digital rectal examination showed no neoplasm. The Olympus video colonoscope was passed in the rectum and manipulated into the sigmoid. There was no evidence of colitis. Angulation changes and some edema was noted related to diverticulosis ultimately. All due care was taken to manipulate the scope through the sigmoid and left colon. There was minimal amount of air as possible, so as to avoid exacerbation of acute diverticulitis. The scope once passed the sigmoid was relatively more easy to a passed ultimately to the cecum. The ileocecal valve and appendiceal orifice were normal. Biopsies were taken of the cecum to rule out occult colitis. The scope was withdrawn. Examination showed no sign of abnormality until the sigmoid diverticulosis was once again noted. Biopsies were taken of the sigmoid. Further withdrawal left for biopsy of the rectum. Retroflexed view confirmed significant internal hemorrhoidal component to the hemorrhoidal prolapse as well. The scope was removed the patient taken to recovery room in good condition. Reduction of hemorrhoidal tissue was undertaken as best could be prior to removal from the endoscopy suite. CONCLUDING DIAGNOSES: 1. Diverticulosis without evidence of colitis, ischemic colitis or other inflammatory process. 2. Acutely prolapsing internal external hemorrhoidal disease without thrombosis. PLAN: She will be maintained on her antibiotics and liquid diet. Attention to anorectal care for acute hemorrhoidal disease will be undertaken as well. MD ONEIDA Mcgrath/MODL /[id number] cc: ASHLEY MOSER MD Electronically Signed By: WASHINGTON KLEIN MD 04/28/23 1411 PATIENT NAME: FREDDY MAY OPERATIVE REPORT DATE OF : 69 REPORT #: [id number] PHYSICIAN: WASHINGTON KLEIN MD PCP: NO PRIMARY CARE PHYSICIAN REPORT IS CONFIDENTIAL AND NOT TO BE RELEASED WITHOUT AUTHORIZATION [address] [address] Signed Cj Jeff MD Copies: ~ Electronically Signed By: WASHINGTON KLEIN MD 04/28/23 1411 PATIENT NAME: FREDDY MAY OPERATIVE REPORT DATE OF : 69 REPORT #: [id number] PHYSICIAN: WASHINGTON KLEIN MD PCP: NO PRIMARY CARE PHYSICIAN REPORT IS CONFIDENTIAL AND NOT TO BE RELEASED WITHOUT AUTHORIZATION
== END 2023-04-27 16:45 | disposition home or self-care (01) | DRG 392 ==
LOC: ED 21:23 → MS 21:24
PROVIDERS: Internal Medicine; Surgery; ADMIT Family Medicine; ATTEND Internal Medicine
PROC: 0DBN8ZX Excision of Sigmoid Colon, Via Natural or Artificial Opening Endoscopic, Diagnostic (ICD-10-PCS; 2023-04-26)
PROC: 0DBP8ZX Excision of Rectum, Via Natural or Artificial Opening Endoscopic, Diagnostic (ICD-10-PCS; 2023-04-26)
PROC: 0T9B70Z Drainage of Bladder with Drainage Device, Via Natural or Artificial Opening (ICD-10-PCS; 2023-04-26)
PROC: 0DBH8ZX Excision of Cecum, Via Natural or Artificial Opening Endoscopic, Diagnostic (ICD-10-PCS; principal; 2023-04-26 14:15)
DX: K57.32 Diverticulitis of large intestine without perforation or abscess without bleeding (principal); N39.0 Urinary tract infection, site not specified; K64.8 Other hemorrhoids; E03.9 Hypothyroidism, unspecified; F32.A Depression, unspecified; D69.6 Thrombocytopenia, unspecified; E87.6 Hypokalemia; K21.9 Gastro-esophageal reflux disease without esophagitis; K64.4 Residual hemorrhoidal skin tags; Z79.890 Hormone replacement therapy; Z88.8 Allergy status to other drugs, medicaments and biological substances; Z88.2 Allergy status to sulfonamides; Z88.6 Allergy status to analgesic agent; Z90.710 Acquired absence of both cervix and uterus; Z90.49 Acquired absence of other specified parts of digestive tract; Z87.442 Personal history of urinary calculi; Z79.899 Other long term (current) drug therapy
CPT/HCPCS: 00811; 36415; 74177; 80048; 80053; 81001; 83605; 83735; 84100; 85025; 87040; 87493; 93005; 93010; 96366; 96367; 96372; 96375; 96376; A9270; C9113; G0378; J0696; J1170; J1650; J2270; J2405; J2543; J2704; J3475; J3480; J7121; Q9967

== ENCOUNTER 2023-06-19 16:02 | Emergency (ER) | payer MEDICAID ==
[~2023-06-19] VITALS: Ht 157.5 cm; Wt 75.8 kg
[~2023-06-19 16:02] MED LIST changes: +AMOX TR-K CLV1 EACH PO; +BUPROPION XL300 MG PO; +LEVOTHYROXINE75 MCG PO; +OMEPRAZOLE40 MG PO; +OXYCODONE HCL5 MG PO; +PENICILLIN V P500 MG PO
--- OUTSIDE RECORDS SUMMARY | 2023-06-19 16:05 | XMS ---
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 Events No recent Security Events currently on file CRITERIA MET - 6 ED Visits in 6 Months - PDMP - [facility] - 2 Visits in 30 Days - [facility] - 3 Facilities in 90 Days - [facility] - Has Care Guidelines CARE PROVIDERS YUDI LOPEZ [facility] Current PHONE: [phone] GREGORIA JOLLY Family [facility] Current PHONE: Unknown ITALO LOWE [facility] Current PHONE: [phone] GIOVANA GARCIA Family [facility] Current PHONE: Unknown Guidelines Source: [facility] Guidelines Date: 07/19/2022 Care Recommendation: Reason for Care Plan Recommendations: - \T\nbsp; Frequent ED visits with subjective pain complaints.\T\nbsp;\T\nbsp; -18 ED visits between [facility] and [facility] within 6 months -Concerning Board of Pharmacy\T\nbsp;\T\nbsp; Care Plan Recommendations: - Pt should not be treated with potentially addictive pain medications for subjective complaints.\T\nbsp;\T\nbsp;\T\nbsp; - No home prescriptions of narcotics for subjective pain complaints. - SW/CM complete a needs assessment, provide appropriate resources/referrals, if applicable.\T\nbsp; - Educate Pt regarding appropriate use of ED.\T\nbsp;\T\nbsp; Board of Pharmacy Review (Dates Investigated: 07/17/20-07/12/22) Prescriptions: 181 Pharmacies: 100 Prescribers: 30 Guidelines created on: 07/10/2019 Revised on:\TArcelianbsp;07/19/2022 Additional care guidelines exist for the following facilities: [facility] ( 11/19/2020 ) [facility] [place] VISIT COUNT (12 MO[address] 15 [facility] [place] 9 [facility] [facility] 4 [facility] 2 [facility] [place] [facility] 1 Yuniel Banuelos ([facility] 1 [facility] 1 [facility] [place] 1 [facility] [place] 1 [facility] 1 [facility] 1 [facility]_ TOTAL 51 NOTE: Visits indicate total known visits. ED/UCC VISIT TRACKING (12 MO.) 06/19/2023 16:02 PRIYANK Swann [place] TYPE: Emergency COMPLAINT: - POSS HERNIA 06/08/2023 22:20 [facility] [place] TYPE: Emergency DIAGNOSES: - Malingerer [conscious simulation] - Nausea - Unilateral inguinal hernia, without obstruction or gangrene, not specified as recurrent - hernia 06/05/2023 17:25 [facility] [place] TYPE: Emergency DIAGNOSES: - Left lower quadrant pain - Abdominal Pain 06/02/2023 18:59 [facility] [place] TYPE: Emergency DIAGNOSES: - Unilateral inguinal hernia, without obstruction or gangrene, recurrent - HERNIA 05/24/2023 17:54 Yuniel CORDERO [place] ([facility]) TYPE: Emergency DIAGNOSES: - Unspecified abdominal pain - abdominal and back pain - Flank Pain [facility]23 09[facility] DIAGNOSES: - Unspecified abdominal pain - Dysuria - Flank Pain 05/23/2023 17:35 [facility] [place] [facility] DIAGNOSES: - Hematuria, unspecified - Other chronic pain - Unspecified abdominal pain - Urinary tract infection, site not specified - ABD PAIN 05/20/2023 16:18 [facility] [employer] [place] TYPE: Emergency DIAGNOSES: - Right lower quadrant pain - Unspecified abdominal pain - BLOOD IN URINE 05/17/2023 18:00 [facility] TYPE: Emergency COMPLAINT: - chest pain, difficulty breathing DIAGNOSES: - Chest pain, unspecified - Chest Pain - chest pain, difficulty breathing - Neck Pain 05/10/2023 15:57 [facility] [place] TYPE: Emergency DIAGNOSES: - Diarrhea, unspecified - Nausea with vomiting, unspecified - Other chronic pain - Unspecified abdominal pain - Abdominal Pain 05/09/2023 13:31 [facility] [place] TYPE: Emergency COMPLAINT: - abd pain, fever DIAGNOSES: - Other chronic pain - Unspecified abdominal pain - abd pain, fever - Abdominal Pain 05/09/2023 11:14 [facility] [place] TYPE: Emergency DIAGNOSES: - Malingerer [conscious simulation] - Abdominal Pain 05/07/2023 11:39 [facility] [place] TYPE: Emergency DIAGNOSES: - Diverticulosis of intestine, part unspecified, without perforation or abscess without bleeding - Left lower quadrant pain - Nausea with vomiting, unspecified - Abdominal Pain 05/01/2023 05:30 [facility] [place] TYPE: Emergency COMPLAINT: - fever, vomitting, abdominal pain DIAGNOSES: - fever, vomitting, abdominal pain 04/30/2023 09:03 [facility] [place] TYPE: Emergency DIAGNOSES: - Diverticulitis of intestine, part unspecified, without perforation or abscess without bleeding - ABD PAIN VOMITING BLOODY STOOL 04/29/2023 16:42 [facility] [place] TYPE: Emergency DIAGNOSES: - Diverticulitis of large intestine without perforation or abscess without bleeding - ABD PAIN FEVER VOMITING HX OF DIVERTICULITIS 04/29/2023 14:09 PRIYANK Swann [place] TYPE: Emergency COMPLAINT: - ABD PAIN, N/V, FEVER DIAGNOSES: - Allergy status to narcotic agent - Allergy status to other drugs, medicaments and biological substances - Allergy status to sulfonamides - Depression, unspecified - Gastro-esophageal reflux disease without esophagitis - Hypothyroidism, unspecified - Nausea with vomiting, unspecified - Other long term care administrator (current) drug therapy - Procedure and treatment not carried out because of patient's decision for other reasons - Unspecified abdominal pain 04/28/2023 19:50 [facility] [place] TYPE: Emergency DIAGNOSES: - Nausea with vomiting, unspecified - Other chronic pain - Unspecified abdominal pain - Abdominal Pain - unk 04/21/2023 21:23 [facility] [place] TYPE: Emergency COMPLAINT: - FLANK PAIN 04/17/2023 15:46 [facility] [place] TYPE: Emergency COMPLAINT: - R FLANK PAIN, NAUSEA, BLOOD IN URINE DIAGNOSES: - Allergy status to other drugs, medicaments and biological substances - Unspecified abdominal pain - Unspecified renal colic Plus 31 More Visits INPATIENT VISIT TRACKING (12 MO.) 05/01/2023 05:30 [facility] [place] TYPE: Medical Surgical COMPLAINT: - fever, vomitting, abdominal pain DIAGNOSES: - fever, vomitting, abdominal pain 04/23/2023 10:52 [facility] Swann [place] TYPE: Medical Surgical COMPLAINT: - DIVERTICULITIS/INTRACTABLE NAUSEA AND VOMITING DIAGNOSES: - Acquired absence of both cervix and uterus - Acquired absence of both cervix and uterus - Acquired absence of other specified parts of digestive tract - Acquired absence of other specified parts of digestive tract - Allergy status to analgesic agent - Allergy status to analgesic agent - Allergy status to other drugs, medicaments and biological substances - Allergy status to other drugs, medicaments and biological substances - Allergy status to sulfonamides - Allergy status to sulfonamides - Depression, unspecified - Depression, unspecified - Diverticulitis of large intestine without perforation or abscess without bleeding - Diverticulitis of large intestine without perforation or abscess without bleeding - Gastro-esophageal reflux disease without esophagitis - Gastro-esophageal reflux disease without esophagitis - Hormone replacement therapy - Hormone replacement therapy - Hypokalemia - Hypokalemia - Hypothyroidism, unspecified - Hypothyroidism, unspecified - Noninfective gastroenteritis and colitis, unspecified - Noninfective gastroenteritis and colitis, unspecified - Other hemorrhoids - Other hemorrhoids - Other long term care administrator (current) drug therapy - Other long term care administrator (current) drug therapy - Personal history of urinary calculi - Personal history of urinary calculi - Residual hemorrhoidal skin tags - Thrombocytopenia, unspecified - Thrombocytopenia, unspecified - Unspecified abdominal pain - Urinary tract infection, site not specified - Urinary tract infection, site not specified 01/19/2023 11:00 [facility] ([facility] Exch[facility] TYPE: Surgery COMPLAINT: - Chronic abdominal pain DIAGNOSES: - Unspecified abdominal pain [email or web address]
[2023-06-19 17:51] LABS: BASOPHILS 0.7 % (0-2); HEMATOCRIT 36.3 % (35.0-50.0); HEMOGLOBIN 12.2 g/dL (12.0-18.0); LYMPHOCYTES 41.3 % (24-44); MCH 28.3 (27-36); MCHC 33.6 g/dl (30-36); MCV 84.2 fl (81-99); MONOCYTES 6.8 % (0-12); NEUTROPHILS 50.2 % (39-80); PLATELET COUNT 360 K/uL (140-440); RBC 4.31 M/ul (4.3-5.7); RDW 15.4 (10.5-15.0)
[2023-06-19 18:11] LABS: ALBUMIN 4.1 g/dL (3.4-5.0); ALBUMIN/GLOBULIN RATIO 1.28 (1.1-2.4); BILIRUBIN, TOTAL 0.6 ng/dL (0.2-1.0); BUN/CREATININE RATIO 12.5 (6.0-28.6); CALCIUM 9.1 mg/dL (8.5-10.1); CREATININE, SERUM 0.64 mg/dL (0.55-1.02); PROTEIN, TOTAL 7.3 g/dL (6.4-8.2)
[2023-06-19 18:30] VITALS: BP 121/86
== END 2023-06-19 18:22 | disposition left against medical advice (07) ==
LOC: ED 16:02
PROVIDERS: Emergency Medicine
DX: R10.9 Unspecified abdominal pain (principal); E03.9 Hypothyroidism, unspecified; K21.9 Gastro-esophageal reflux disease without esophagitis; Z53.29 Procedure and treatment not carried out because of patient's decision for other reasons; Z88.2 Allergy status to sulfonamides; Z88.5 Allergy status to narcotic agent; Z88.8 Allergy status to other drugs, medicaments and biological substances; Z79.899 Other long term (current) drug therapy
CPT/HCPCS: 36415; 80053; 83690; 85025; 99284